=== PATIENT | female | born 1980 | race Caucasian/White ===

== ENCOUNTER → 2016-09-14 | Outpatient (CLI) | payer OTHER | LOC: KOH-I 09:01 | DX: G45.9 Transient cerebral ischemic attack, unspecified (principal); I65.23 Occlusion and stenosis of bilateral carotid arteries; R29.818 Other symptoms and signs involving the nervous system; R90.89 Other abnormal findings on diagnostic imaging of central nervous system; R20.2 Paresthesia of skin | CPT/HCPCS: 70551; 93880 ==

== ENCOUNTER 2016-10-03 15:53 | Emergency (ER) | payer OTHER | END 2016-10-03 17:39 | disposition home or self-care (01) | LOC: ER1 15:53 | DX: J02.0 Streptococcal pharyngitis (principal); E11.9 Type 2 diabetes mellitus without complications | CPT/HCPCS: 87081; 87880; 99282 ==